=== PATIENT | female | born 1970 | race Caucasian/White ===

== ENCOUNTER 2017-09-01 05:10 | Emergency (ER) | payer OTHER ==
--- OUTSIDE RECORDS SUMMARY | 2017-09-01 05:12 | XMS REPORT ---
:1970 [facility] [address] [place] [address] Care Team Providers Name Role Phone BABATUNDE WILLIAMSON III Primary Care Provider Unavailable GEMMA BARNETT M.D. Unavailable Unavailable Problems This patient has no known problems. Allergies, Adverse Reactions, Alerts This patient has no known allergies or adverse reactions. Medications This patient has no known medications. Results Test Description Test Time Test Comments Text Results Atomic Results Result Comments Carbamazepine 2017-07-01 08:48:00 Test Item Value Reference Range Comments Carbamazepine (test code=CARB) 8.9 ug/mL 8.0-12.0 RPR, [id number] 15:01:00 Test Item Value Reference Range Comments RPR (test code=RPR) Non-Reactive Non-Reactive Thyroid Stimulating Hormone (TSH)2017-06-26 08:37:00 Test Item Value Reference Range Comments TSH (test code=TSH) 0.08 mIU/mL 0.270-4.200 Comprehensive Metabolic [id number] 08:30:00 Test Item Value Reference Range Comments Sodium (test code=NA) 143 mmol/L 135-145 Potassium (test code=K) 4.6 mmol/L 3.5-5.1 Chloride (test code=CL) 105 mmol/L 98-105 Carbon Dioxide (test 28 mmol/L 22-29 code=CO2) Glucose (test code=GLU) 100 mg/dL 70-115 Blood Urea Nitrogen 17 mg/dL 6-20 (test code=BUN) Creatinine (test 0.8 mg/dL 0.5-0.9 code=CREAT) Calcium (test code=CA) 9.4 mg/dL 8.3-10.5 Prot Total (test 7.4 g/dL 6.4-8.3 code=TP) Albumin (test code=ALB) 4.7 g/dL 3.5-5.2 A/G Ratio (test 1.7 Ratio code=AGRATIO) Globulin (test 2.7 2.9-3.1 code=GLOB) Bili Total (test 0.5 mg/dL 0.1-0.9 code=TBIL) Alk Phos (test 64 U/L 35-104 code=APHOS) AST (test code=AST) 27 U/L 1-32 ALT (test code=ALT) 36 U/L 1-33 BUN/Creatinine Ratio 21.3 (test code=BCRATIO) Anion Gap (test 10 mmol/L 7-16 code=AGAP) Estimated GFR (test >60 eGFR (estimated Glomerular code=GFR) mL/min/1.73m2 Filtration Rate) is an estimated value,calculated from the patient's serum creatinine using the MDRD equation.It is NOT the patient's actual GFR. The eGFR provides a more clinicallyuseful measure of kidney disease than serum creatinine alone.This calculation takes sex and race into account, if the informationis provided. If the race is not provided, and the patient isAfrican-Bulgarian, multiply by 1.212. If sex is not provided, and thepatient is female, multiply by 0.742. Results for patients <18 years ofage have not been validated by the MDRD study and should be interpretedwith caution.eGFR Result Interpretation:eGFR > or=60 is in the Normal RangeeGFR < 60 may mean kidney diseaseeGFR < 15 may mean kidney failureRanges recommended by the National Kidney Foundation,http://nkdep.ni h.gov Lipid [id number] 08:30:00 Test Item Value Reference Range Comments Cholesterol (test 205 mg/dL 0-200 code=CHOL) Triglycerides (test 92 mg/dL 9-200 code=TRIG) HDL (test code=HDL) 79 mg/dL 50-60 Chol/HDL (test 2.6 Ratio 0.0-4.4 code=CHOLPHDL) LDL, Calculated (test 108 0-130 (NOTE)RISK OF HEART code=LDLC) DISEASEPublished by Bulgarian Heart AssociationAnalyte Optimal Boderline Increased RiskCHOL <200 200-239 >240TRIG <150 150-199 >200HDL Male: >60 <40HDL Female: >60 <50LDL <100 130-159 >160LDL NEAR OPTIMAL IS 100-129 VLDL (test code=VLDL) 18 mg/dL 5-40 LDL/HDL (test code=LDLPHDL) 1 BHCG, Urine, [id number] 16:57:00 Test Item Value Reference Range Comments Preg Qual [Ur] (test code=HUHCG) Negative Negative [id number] 16:55:00 Test Item Value Reference Range Comments Amphetamine (test code=AMPH) Negative Negative For diagnostic purposes only, positive results should always be assessedin conjunctionwith the patient's medical history,clinical examination and otherfindings.To fulfill legal requirements, a more specific alternate chemical methodmust be used inorder to obtain a Confirmed analytical result. GC/MS is the preferred confirmatory method. Barbiturates (test code=NOREEN) Negative Negative Benzodiazepine (test Negative Negative code=DELISA) Cocaine (test code=COCA) Negative Negative Methadone (test code=MTHD) Negative Negative Opiates (test code=OPIA) Negative Negative PCP (test code=PCP) Negative Negative Propoxyphene (test Negative Negative code=PROPOX) THC (test code=THC) Negative Negative Urinalysis [id number] 16:41:00 Test Item Value Reference Range Comments Color (test code=COLOR) Yellow Yellow,Straw,Pl yellow Clarity (test code=CLAR) Clear Clear Specific [place] (test code=SPGR) 1.015 1.001-1.035 pH (test code=PH) 7.0 5.0-9.0 Ketone (test code=KET) Negative mg/dL Negative Glucose (test code=GLUCUR) Negative mg/dL Negative Protein (test code=PROT) Negative mg/dL Negative Bilirubin (test code=BILI) Negative mg/dL Negative Occult Blood (test code=UDOB) Negative Negative Urobilinogen (test code=UROB) 0.2 mg/dL 0.2-1.0 Nitrite (test code=NIT) Negative Negative Leuk Esterase (test code=LEUK) Negative Negative Micros Exam (test code=MEXAM) Not indicated CBC with [id number] 16:41:00 Test Item Value Reference Range Comments WBC (test code=WBC) 6.7 K/cumm 4.4-10.5 RBC (test code=RBC) 4.07 M/cumm 3.75-5.20 Hemoglobin (test code=HGB) 12.1 gm/dL 12.2-14.8 Hematocrit (test code=HCT) 35.3 % 36.5-44.4 MCV (test code=MCV) 86.9 fL 80-100 MCH (test code=MCH) 29.7 pg 27.0-32.5 MCHC (test code=MCHC) 34.1 g/dL 32.0-37.5 RDW (test code=RDW) 13.0 % 11.5-14.5 Platelet Count (test code=PLTCT) 313 K/cumm 140-440 MPV (test code=MPV) 9.0 fL Diff Method (test code=DIFFM) Auto Neutrophil (test code=NEUT) 51.8 % 36-70 Lymphocyte (test code=LYMPH) 39.5 % 12-44 Monocyte (test code=MONO) 6.9 % 0-11 Eosinophil (test code=EOS) 1.1 % 0-7 Basophil (test code=BASO) 0.6 % 0-2 Neutro Abs (test code=ANEUT) 3.5 K/cumm 1.6-7.4 Lymph Abs (test code=ALYMPH) 2.7 K/cumm 0.5-4.6 [place] Abs (test code=AMONO) 0.5 K/cumm 0.0-1.2 Eos Abs (test code=AEOS) 0.08 K/cumm 0.00-0.74 Baso Abs (test code=ABASO) 0.0 K/cumm 0.00-0.21
--- NOTE | 2017-09-01 05:26 | ER ---
Nurse's Notes [facility] Name: Andreea Quevedo Age: 47 yrs Sex: Female : 1970 Arrival Date: 09/01/2017 Time: 05:10 Bed 6 Private MD: Diagnosis: Malingerer [conscious simulation] Presentation: 09/01 05:26 Presenting complaint: Patient states: she would like her thyroid checked and lk1 medications refilled and thinks she has an infection. Transition of care: patient was not received from another setting of care. Onset of symptoms is unknown. Care prior to arrival: None. 05:26 Method Of Arrival: Ambulatory lk1 05:26 Acuity: SERGE 5 lk1 Triage Assessment: 05:27 General: Appears in no apparent distress. Behavior is appropriate for age. Pain: Denies lk1 pain. Cardiovascular: Capillary refill is brisk Patient's skin is warm and dry. Respiratory: Airway is patent Respiratory effort is even, unlabored, Respiratory pattern is regular, symmetrical. GI: Abdomen is non-distended. 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 - Social history:: The patient lives at home, Smoking status: unknown. Screenin:28 Abuse screen: Denies threats or abuse. Denies injuries from another. Nutritional lk1 screening: No deficits noted. Tuberculosis screening: No symptoms or risk factors identified. Fall Risk None identified. Vital Signs: 05:17 BP 144 / 92; Pulse 79; Resp 15; Temp 98.7(O); Pulse Ox 98% on R/A; Weight 72.57 kg (R); lk1 Height 5 ft. 6 in. (167.64 cm) (R); Pain 0/10; 05:17 Body Mass Index 25.82 (72.57 kg, 167.64 cm) lk1 ED Course: 05:10 Patient arrived in ED. ds1 05:16 Magdaleno Rajan MD is Attending Physician. gs 05:27 Triage completed. lk1 05:28 Arm band placed on right wrist. lk1 05:28 Patient has correct armband on for positive identification. Bed in low position. Call lk1 light in reach. 05:28 No provider procedures requiring assistance completed. Patient did not have IV access lk1 during this emergency room visit. Administered Medications: No medications were administered Outcome: 05:25 Discharge ordered by . 05:29 Discharged to home ambulatory. lk1 05:29 Condition: good 05:29 Discharge instructions given to patient, Instructed on discharge instructions, follow up and referral plans. Demonstrated understanding of instructions. 05:29 Patient left the ED. lk1 Signatures: Katie Hillman ds1 Cristela Lynch RN RN lk1 Magdaleno Rajan MD MD
--- NOTE | 2017-09-01 05:26 | EDPHYS ---
Physician Documentation [facility] Name: Andreea Quevedo Age: 47 yrs Sex: Female : 1970 Arrival Date: 09/01/2017 Time: 05:10 Bed 6 Private MD: ED Physician Magdaleno Rajan HPI: 09/01 05:18 This 47 yrs old Female presents to ER via Unassigned with complaints of gs Possible Infection, Thyroid Issue. 05:18 The patient presents to the emergency department requesting refill(s) for: Synthroid. gs The patient has experienced similar episodes in the past. wants to be checked for infection yet has no symptoms no fever. . 05:31 also wants food. 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 - Social history:: The patient lives at home, Smoking status: unknown. ROS: 05:21 Constitutional: Negative for fever. gs 05:21 Endocrine: Positive for wants med refill. 05:21 All other systems are negative. Exam: 05:21 Head/Face: Normocephalic, atraumatic. Eyes: Pupils equal round and reactive to light, gs extra-ocular motions intact. Lids and lashes normal. Conjunctiva and sclera are non-icteric and not injected. Cornea within normal limits. Periorbital areas with no swelling, redness, or edema. ENT: Nares patent. No nasal discharge, no septal abnormalities noted. Tympanic membranes are normal and external auditory canals are clear. Oropharynx with no redness, swelling, or masses, exudates, or evidence of obstruction, uvula midline. Mucous membranes moist. Neck: Trachea midline, no thyromegaly or masses palpated, and no cervical lymphadenopathy. Supple, full range of motion without nuchal rigidity, or vertebral point tenderness. No Meningismus. Chest/axilla: Normal chest wall appearance and motion. Nontender with no deformity. No lesions are appreciated. Cardiovascular: Regular rate and rhythm with a normal S1 and S2. No gallops, murmurs, or rubs. Normal PMI, no JVD. No pulse deficits. Respiratory: Lungs have equal breath sounds bilaterally, clear to auscultation and percussion. No rales, rhonchi or wheezes noted. No increased work of breathing, no retractions or nasal flaring. Abdomen/GI: Soft, non-tender, with normal bowel sounds. No distension or tympany. No guarding or rebound. No evidence of tenderness throughout. Back: No spinal tenderness. No costovertebral tenderness. Full range of motion. Female : Normal external genitalia. Skin: Warm, dry with normal turgor. Normal color with no rashes, no lesions, and no evidence of cellulitis. 05:21 Constitutional: The patient appears alert, awake. 05:21 Musculoskeletal/extremity: air sampling and monitoring's tip left hand. 05:21 Neuro: Orientation: to person, place, time \T\ situation. Cranial nerves: no acute changes, Motor: moves all fours, Sensation: no obvious gross deficits, Gait: is steady. 05:27 Psych: poor eye contact. Vital Signs: 05:17 BP 144 / 92; Pulse 79; Resp 15; Temp 98.7(O); Pulse Ox 98% on R/A; Weight 72.57 kg (R); lk1 Height 5 ft. 6 in. (167.64 cm) (R); Pain 0/10; 05:17 Body Mass Index 25.82 (72.57 kg, 167.64 cm) lk1 MDM: 05:18 Patient medically screened. 05:21 Data reviewed: vital signs, nurses notes, old medical records. ED course: med refill, gs malingering, psych disorder. Administered Medications: No medications were administered Disposition: 09/01/17 05:25 Discharged to Home. Impression: Malingerer [conscious simulation]. - Condition is Stable. - Medication Reconciliation Form, Thank You Letter, Antibiotic Education, Prescription Opioid Use form. - Follow up: Private Physician; When: 1 - 2 days; Reason: Re-evaluation by your physician. Signatures: Cristela Lynch RN RN lk1 Magdaleno Rajan MD MD Corrections: (The following items were deleted from the chart) 05:31 05:18 The patient presents to the emergency department requesting refill(s) for: Synthroid,
[2017-09-01 05:34] VITALS: BP 144/92; TEMP 98.7; O2SAT 98
== END 2017-09-01 05:29 | disposition home or self-care (01) ==
LOC: ER 05:10
DX: Z76.5 Malingerer [conscious simulation] (principal)
CPT/HCPCS: 99281

== ENCOUNTER 2017-11-05 15:59 | Emergency (ER) | payer OTHER ==
--- OUTSIDE RECORDS SUMMARY | 2017-11-05 16:01 | XMS REPORT ---
:1970 [facility] [address] [place] [address] Care Team Providers Name Role Phone KODY WILLIAMSON III Primary Care Provider Unavailable GEMMA [...] Carbamazepine (test code=CARB) 8.9 ug/mL 8.0-12.0 RPR, [id number] 15:01:00 Test Item Value Reference Range Comments RPR (test code=RPR) Non-Reactive Non-Reactive Thyroid Stimulating Hormone (TSH)2017-06-26 08:37:00 Test Item Value Reference Range Comments TSH (test code=TSH) 0.08 mIU/mL 0.270-4.200 Comprehensive Metabolic [id number] 08:30:00 Test Item Value Reference Range Comments [...] mmol/L 7-16 code=AGAP) Estimated GFR (test >60 mL/min/1.73m2 eGFR (estimated Glomerular code=GFR) Filtration Rate) is an estimated value,calculated from the patient's serum creatinine using the MDRD equation.It is NOT the patient's actual GFR. The eGFR provides a more clinicallyuseful measure of kidney disease than serum creatinine alone.This calculation takes sex and race into account, if the informationis provided. If the race is not provided, and the patient isAfrican-Micronesian, multiply by 1.212. If sex is not provided, and thepatient is female, multiply by 0.742. Results for patients <18 years ofage have not been validated by the MDRD study and should be interpretedwith caution.eGFR Result Interpretation:eGFR > or=60 is in the Normal RangeeGFR < 60 may mean kidney diseaseeGFR < 15 may mean kidney failureRanges recommended by the National Kidney Foundation,http://nkdep.nih .gov Lipid [id number] 08:30:00 Test Item Value Reference Range Comments Cholesterol (test 205 mg/dL 0-200 code=CHOL) Triglycerides (test 92 mg/dL 9-200 code=TRIG) HDL (test code=HDL) 79 mg/dL 50-60 Chol/HDL (test 2.6 Ratio 0.0-4.4 code=CHOLPHDL) LDL, Calculated (test 108 0-130 (NOTE)RISK OF HEART code=LDLC) DISEASEPublished by [place]ronesian Heart AssociationAnalyte Optimal Boderline Increased RiskCHOL <200 200-239 >240TRIG <150 150-199 >200HDL Male: >60 <40HDL Female: >60 <50LDL <100 130-159 >160LDL NEAR OPTIMAL IS 100-129 VLDL (test code=VLDL) 18 mg/dL 5-40 LDL/HDL (test code=LDLPHDL) 1 BHCG, Urine, [id number] 16:57:00 Test Item Value Reference Range Comments Preg Qual [Ur] (test code=HUHCG) Negative Negative [id number] 16:55:00 Test Item Value Reference Range Comments [...] code=PROPOX) THC (test code=THC) Negative Negative Urinalysis [id number] 16:41:00 Test Item Value Reference Range Comments Color (test code=COLOR) Yellow Yellow,Straw,Pl yellow Clarity (test code=CLAR) Clear Clear Specific [place] (test code=SPGR) 1.015 1.001-1.035 pH (test code=PH) [...] Exam (test code=MEXAM) Not indicated CBC with [id number] 16:41:00 Test Item Value Reference Range Comments [...] Lymph Abs (test code=ALYMPH) 2.7 K/cumm 0.5-4.6 [place] Abs (test code=AMONO) 0.5 K/cumm 0.0-1.2 Eos Abs (test code=AEOS) 0.08 K/cumm 0.00-0.74 Baso Abs (test code=ABASO) 0.0 K/cumm 0.00-0.21
[2017-11-05 17:11] LABS: Urine Blood 1+ (NEG); Urine Glucose NEGATIVE (NEG); Urine Protein NEGATIVE (NEG); Urine Specific Gravity <1.005 (1.005-1.030)
--- NOTE | 2017-11-05 18:54 | EDPHYS ---
Physician Documentation [facility] Name: Andreea Quevedo Age: 47 yrs Sex: Female : 1970 Arrival Date: 11/05/2017 Time: 16:00 Bed 27 Private MD: None, None ED Physician Jame Huerta HPI: 11/05 17:23 This 47 yrs old Female presents to ER via Ambulatory with complaints of wrist rn pain. 17:23 The patient or guardian reports pain. The complaints affect the right wrist diffusely. rn Onset: The symptoms/episode began/occurred 3 day(s) ago. Modifying factors: The symptoms are alleviated by nothing, the symptoms are aggravated by nothing. The patient has experienced a previous episode. Reports released from [facility], 3 days ago while in [facility] had temper tantrum, repeatedly struck her own head with her wrist, thinks hurt her wrist on her metal plate in her head, no LOC, otherwise no complaint. Also wants to get blood tests for infection, although no focal complaints, no fever/chills/sob/cough/abd pain/vomiting/diarrhea.. 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 - Social history:: Smoking status: Patient/guardian denies using tobacco. - Ebola Screening: : Patient negative for fever greater than or equal to 101.5 degrees Fahrenheit, and additional compatible Ebola Virus Disease symptoms. - Family history:: not pertinent. - Hospitalizations: : No recent hospitalization is reported. ROS: 17:23 Constitutional: Negative for fever, chills, and weight loss, Eyes: Negative for injury, rn pain, redness, and discharge, Cardiovascular: Negative for chest pain, palpitations, and edema, Respiratory: Negative for shortness of breath, cough, wheezing, and pleuritic chest pain, Abdomen/GI: Negative for abdominal pain, nausea, vomiting, diarrhea, and constipation, MS/Extremity: Negative for deformity, Skin: Negative for injury, rash, and discoloration, Neuro: Negative for headache, weakness, numbness, tingling, and seizure. Exam: 17:23 Constitutional: This is a well developed, well nourished patient who is awake, alert, rn and in no acute distress. Calmly walking to room. Head/Face: Normocephalic, atraumatic. Eyes: Pupils equal round and reactive to light, extra-ocular motions intact. Lids and lashes normal. Conjunctiva and sclera are non-icteric and not injected. Cornea within normal limits. Periorbital areas with no swelling, redness, or edema. Neck: Trachea midline, no thyromegaly or masses palpated, and no cervical lymphadenopathy. Supple, full range of motion without nuchal rigidity, or vertebral point tenderness. No Meningismus. Cardiovascular: Regular rate and rhythm with a normal S1 and S2. No gallops, murmurs, or rubs. Normal PMI, no JVD. No pulse deficits. Respiratory: Lungs have equal breath sounds bilaterally, clear to auscultation and percussion. No rales, rhonchi or wheezes noted. No increased work of breathing, no retractions or nasal flaring. Abdomen/GI: Soft, non-tender, with normal bowel sounds. No distension or tympany. No guarding or rebound. No evidence of tenderness throughout. MS/ Extremity: Pulses equal, no cyanosis. Neurovascular intact. Full, normal range of motion. Equal circumference. Mild tenderness right distal wrist. Neuro: Awake and alert, GCS 15, oriented to person, place, time, and situation. Cranial nerves II-XII grossly intact. Motor strength 5/5 in all extremities. Sensory grossly intact. Cerebellar exam normal. Normal gait. Vital Signs: 16:11 BP 195 / 88; Pulse 127; Resp 19; Temp 98.0; Pulse Ox 97% on R/A; Weight 53.98 kg; aj Height 5 ft. 3 in. (160.02 cm); 17:28 BP 152 / 71; Pulse 93; Resp 15; Pulse Ox 100% ; Pain 6/10; rs2 18:45 BP 158 / 91; Pulse 86; Resp 16; Temp 98.7; Pulse Ox 100% ; Pain 3/10; rs2 19:28 BP 149 / 89; Pulse 84; Resp 18; Pulse Ox 97% ; Pain 3/10; sr5 16:11 Body Mass Index 21.08 (53.98 kg, 160.02 cm) shan MDM: 16:15 Patient medically screened. rn 18:50 Differential diagnosis: closed fracture, contusion. Data reviewed: vital signs, nurses rn notes, lab test result(s), radiologic studies, plain films, and as a result, I will discharge patient. Counseling: I had a detailed discussion with the patient and/or guardian regarding: the historical points, exam findings, and any diagnostic results supporting the discharge/admit diagnosis, radiology results, the need for outpatient follow up, to return to the emergency department if symptoms worsen or persist or if there are any questions or concerns that arise at home. Special discussion: I discussed with the patient/guardian in detail that at this point there is no indication for admission to the hospital. It is understood, however, that if the symptoms persist or worsen the patient needs to return immediately for re-evaluation. ED course: Pt without focal symptoms, UA neg, afebrile, vitals normal except for hypertension, xray shows possible old wrist injury, nothing acute, will dc home with wrist brace given mild pain. Benign exam. Mother continues to list symptoms for patient while patient denies and gets upset with mother. Given absent symptoms/complaints and benign exam, will dc home with return precautions.. 11/05 17:08 Order name: Urine Dipstick--Ancillary (enter results); Complete Time: 17:32 aa5 11/05 16:37 Order name: XRAY Wrist RIGHT 3 view rn 11/05 16:37 Order name: Urine Dipstick-Ancillary (obtain specimen); Complete Time: 16:55 rn 11/05 18:49 Order name: Wrist Splint: wrist brace; Complete Time: 19:27 rn Administered Medications: No medications were administered Disposition: 11/05/17 18:53 Discharged to Home. Impression: Contusion of right wrist. - Condition is Stable. - Discharge Instructions: Contusion, Wrist Pain. - Medication Reconciliation Form, Thank You Letter, Antibiotic Education, Prescription Opioid Use form. - Follow up: Private Physician; When: As needed; Reason: Recheck today's complaints, Re-evaluation by your physician. - Problem is an ongoing problem. - Symptoms have improved. 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 rn 19:30 18:53 11/05/2017 18:53 Discharged to Home. Impression: Contusion of right wrist. sr5 Condition is Stable. Forms are Medication Reconciliation Form, Thank You Letter, Antibiotic Education, Prescription Opioid Use. Follow up: Private Physician; When: As needed; Reason: Recheck today's complaints, Re-evaluation by your physician. Problem is an ongoing problem. Symptoms have improved. rn
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
[2017-11-05 21:09] VITALS: TEMP 98.7
[2017-11-05 21:11] VITALS: BP 149/89; O2SAT 97
== END 2017-11-05 19:30 | disposition home or self-care (01) ==
LOC: ER 15:59
DX: S60.211A Contusion of right wrist, initial encounter (principal); X58.XXXA Exposure to other specified factors, initial encounter; Y93.9 Activity, unspecified; Y92.89 Other specified places as the place of occurrence of the external cause; Z88.0 Allergy status to penicillin; Z91.09 Other allergy status, other than to drugs and biological substances; Z88.3 Allergy status to other anti-infective agents
CPT/HCPCS: 81003; 99283